=== PATIENT | female | born 1995 | race Caucasian/White ===

== ENCOUNTER 2021-03-21 23:06 | Emergency (ER) | payer OTHER, SELFPAY ==
[2021-03-21 23:10] VITALS: BP 151/100; PULSE 104; RESP 28; TEMP 36.9; O2SAT 100
--- NOTE | 2021-03-21 23:24 | ED.DENTAL ---
HPI - Dental/Oral General Chief complaint: Dental/Oral Stated complaint: neck absess Source: patient and family Mode of arrival: ambulatory Limitations: no limitations History of Present Illness HPI Narrative: Patient presents with sensation of her throat swelling after [facility] and was told that she had inflamed tonsils, currently has some submandibular gland swelling and tenderness with with no fever or chills not short of breath patient is anxious with no nausea vomiting. Patient was given clindamycin from the clinic, had taken a dose this afternoon and since then has felt her throat was inflamed. Teeth map: 1. erythema but appears that there is no tonsillar enlargement or abscess. Onset (ago): day(s) Duration: constant Severity: moderate Relieving factors: nothing Exacerbating factors: nothing Related Data Home Medications Medication Instructions Recorded Confirmed clindamycin HCl 300 mg PO QID 03/21/21 03/21/21 escitalopram oxalate 20 mg PO DAILY 03/21/21 03/21/21 norethindrone ac-eth estradiol 1 tablet PO DAILY 03/21/21 03/21/21 Allergies Allergy/AdvReac Type Severity Reaction Status Date / Time No Known Allergies Allergy Verified 03/21/21 23:25 Review of Systems Review of Systems: All systems reviewed & are unremarkable except as noted in HPI and below PMFSH Past Medical History Medical History Patient denies medical problems Exam Const: General: no acute distress and alert Orientation/consciousness: patient oriented x3 HENMT: Head: normal to inspection Eyes: Pupils: Equal, round and reactive pupils present Neck: Neck: normal visual inspection, no lymphadenopathy and no meningeal signs Chest: Chest palpation & inspection: normal inspection of the chest Resp: Effort & Inspection: normal respiratory effort Cardio: Rate: regular rate Rhythm: regular rhythm GI: Auscultation: normal bowel sounds : General: Yes no CVA tenderness Urinary Catheter: Urinary Catheter: patent and draining Skin: General skin exam: normal color Rashes: no rashes Extrem: General: normal to inspection and no pedal edema Psych: Mental Status: mental status grossly normal Course Course Emergency Course: patient received 80mg IM Depo-Medrol and Orapred, advised to discontinue clindamycin and will send a dose of prednisone and Augmentin to her pharmacy. Advised patient if symptoms should recur to return to the nearest emergency department. Critical Care Time Critical Care Time Critical Care Time: No Discharge Plan Discharge Clinical Impression: Pharyngitis Qualifiers: Pharyngitis/tonsillitis etiology: unspecified etiology Qualified Code(s): J02.9 - Acute pharyngitis, unspecified Patient Disposition: Home, Self-Care Condition: Stable Instructions: Antibiotic Form, Pharyngitis (ED) Additional Instructions: take medicine as prescribed, and if symptoms should worsen or return should go to the nearest emergency department. Advised to discontinue clindamycin. Prescriptions: New prednisone 20 mg tablet 20 mg PO DAILY 5 Days Qty: 5 RF: 0 amoxicillin-pot clavulanate [Augmentin] 875-125 mg tablet 1 tablet PO Q12H Qty: 20 RF: 0 No Action clindamycin HCl 300 mg capsule 300 mg PO QID RF: 0 norethindrone ac-eth estradiol 1-20 mg-mcg tablet 1 tablet PO DAILY RF: 0 escitalopram oxalate 20 mg tablet 20 mg PO DAILY RF: 0 Follow-up/Referrals: UNKNOWN,DOCTOR [Primary Care Provider] - Stand Alone Forms: Work/School Release IP Time of Disposition: 23:32
[2021-03-21] MEDS: methylPREDNISolone ACETATE 40 MG/ML VIAL 80 MG IM (23:28)
[2021-03-21] MEDS: prednisoLONE ORAL SOLN 30 MG/10 ML SOLUTION PO (23:30)
[2021-03-21 23:47] VITALS: BP 135/82; PULSE 85; RESP 20; TEMP 36.8; O2SAT 97
== END 2021-03-22 00:01 | disposition home or self-care (01) ==
PROVIDERS: Emergency Provider Emergency Medicine
DX: J02.9 Acute pharyngitis, unspecified (principal)
CPT/HCPCS: 96372; 99283; A9270; J1030